=== PATIENT | female | born 1965 | race Two or more races ===

== ENCOUNTER 2020-04-10 00:04 | Emergency (ER) | payer OTHER ==
[~2020-04-10] VITALS: Ht 160 cm; Wt 88.5 kg
[~2020-04-10 00:04] MED LIST: TYLENOR; [UNRECOGNIZED DRUG - CODE]
== END 2020-04-10 07:24 | disposition home or self-care (01) ==
LOC: ER 00:04
DX: U07.1 COVID-19 (principal); J12.89 Other viral pneumonia